=== PATIENT | male | born 1980 | race African-American/Black ===

== ENCOUNTER 2019-04-18 09:35 | Emergency (ER) | payer SELFPAY ==
[~2019-04-18] VITALS: Ht 177.8 cm; Wt 79.0 kg
[2019-04-18 09:40] VITALS: BP 130/85
[2019-04-18] MEDS ORDERED: IBUPROFEN 600MG TABLET PO ONE (10:00)
== END 2019-04-20 04:59 | disposition home or self-care (01) ==
LOC: ER 10:13
DX: R07.89 Other chest pain (principal); L03.012 Cellulitis of left finger; Y93.55 Activity, bike riding; Y93.89 Activity, other specified; Y92.410 Unspecified street and highway as the place of occurrence of the external cause; F14.10 Cocaine abuse, uncomplicated
CPT/HCPCS: 99283